=== PATIENT | female | born 1970 | race Caucasian/White ===

== ENCOUNTER 2017-07-10 05:55 | Day surgery (SDC) | payer BC ==
[~2017-07-10 05:55] MED LIST: Lidocaine 1%/Sod Bicarbonate in NS 8.4% 1 ML Syringe IDERM PRN; Sodium Chloride 0.9% 10 ML Syringe FLUSH PRN
[2017-07-10] MEDS ORDERED: ceFAZolin 1 GM Vial ONE ×2 (06:21→06:30)
[2017-07-10] MEDS ORDERED: Bupivacaine 0.25% 30 ML SDV ONE (06:22)
[2017-07-10] MEDS ORDERED: Iodine/Sodium Iodide 2% Tincture 30 ML Bottle ONE (06:22)
[2017-07-10] MEDS ORDERED: Lidocaine 1% 0 ML ONE (06:27)
[2017-07-10] MEDS ORDERED: Propofol 200 MG/20 ML SDV ONE (06:27)
[2017-07-10] MEDS ORDERED: fentaNYL 100 MCG/2 ML SDV ONE (06:27)
[2017-07-10] MEDS ORDERED: Midazolam 1 MG/ML 2 ML SDV ONE (06:28)
[2017-07-10] MEDS: Lactated Ringers 1,000 ML IV SCH ×3 (06:30→11:17)
--- NOTE | 2017-07-10 06:44 | PCM.PREANE ---
Preanesthetic Assessment - Anesthesia/Transfusion/Family Hx Anesthesia History: Prior Anesthesia Without Reaction Family History of Anesthesia Reaction: No Transfusion History: No Prior Transfusion(s) - Review of Systems General: No Symptoms Pulmonary: No Symptoms Cardiovascular: No Symptoms Gastrointestinal: No Symptoms Neurological: No Symptoms Other: Reports: None, Sinus Problem (stuffiness all the time), Anxiety - Physical Assessment NPO Status Date: 07/09/17 NPO Status Time: 21:30 Pulse: 80 O2 Sat by Pulse Oximetry: 96 Respiratory Rate: 16 Blood Pressure: 133/93 Temperature: 98 F Height: 5 ft 4 in Weight: 92 kg ASA Class: 2 Mental Status: Alert & Oriented x3 Airway Class: Mallampati = 1 Dentition: Reports: Normal Dentition Thyro-Mental Finger Breadths: 3 Mouth Opening Finger Breadths: 3 ROM/Head Extension: Full Lungs: Clear to Auscultation, Normal Respiratory Effort Cardiovascular: Regular Rate, Regular Rhythm - Lab Values: Laboratory Last Values MRSA (PCR) Negative 06/27/17 11:25 - Allergies Allergies/Adverse Reactions: Allergies Allergy/AdvReac Type Severity Reaction Status Date / Time No Known Allergies Allergy Verified 06/11/15 20:51 - Blood Blood Available: No - Acknowledgements Anesthesia Type Planned: Spinal Pt an Appropriate Candidate for the Planned Anesthesia: Yes Alternatives and Risks of Anesthesia Discussed w Pt/Guardian: Yes Pt/Guardian Understands and Agrees with Anesthesia Plan: Yes PreAnesthesia Questionnaire - Past Health History Medical/Surgical History: Denies Medical/Surgical History HEENT History: Reports: Impaired Vision, Other (See Below) Other HEENT History: meige syndrome, bleeding gums, weras glasses Cardiovascular History: Reports: High Cholesterol, Hypertension Other Cardiovascular History: ITP Respiratory History: Reports: None Gastrointestinal History: Reports: None Genitourinary History: Reports: None [employer] History: Reports: Other (See Below) Other OB/BYN History: breast nodule, dense breast tissue, menorrhagia Other Musculoskeletal History: Carpal tunnel syndrome Neurological History: Reports: Headaches, Chronic Psychiatric History: Reports: Anxiety, Other (See Below) Other Psychiatric History: fatigue Endocrine/Metabolic History: Reports: Other (See Below) Other Endocrine/Metabolic History: abnormal TSH, hair loss Hematologic History: Reports: Other (See Below) Other Hematologic History: idiopathic thrombocytopenia Immunologic History: Reports: None Oncologic (Cancer) History: Reports: None Dermatologic History: Reports: None - Past Surgical History Head Surgeries/Procedures: Reports: None HEENT Surgical History: Reports: Oral Surgery Cardiovascular Surgical History: Reports: None Respiratory Surgical History: Reports: None GI Surgical History: Reports: None Female Surgical History: Reports: None Male Surgical History: Reports: None Endocrine Surgical History: Reports: None Neurological Surgical History: Reports: None Musculoskeletal Surgical History: Reports: Carpal Tunnel Oncologic Surgical History: Reports: None Dermatological Surgical History: Reports: None - SUBSTANCE USE Smoking Status *Q: Never Smoker Tobacco Use Within Last Twelve Months: No Second Hand Smoke Exposure: No Days Per Week of Alcohol Use: 1 (once a month) Number of Drinks Per Day: 1 Total Drinks Per Week: 1 Recreational Drug Use History: No - HOME MEDS Home Medications: Home Meds Lisinopril [Zestril] 7.5 mg PO DAILY 06/11/15 [History] - CURRENT (IN HOUSE) MEDS Current Meds: Current Medications Lactated Ringer's (Ringers, Lactated) 1,000 mls @ 125 mls/hr IV ASDIRECTED ROHIT Stop: 07/10/17 23:00 Lidocaine/Sodium Bicarbonate (Buffered Lidocaine 1% In Ns 8.4%) 0.25 ml IDERM ONETIME PRN PRN Reason: Prior to IV Start Stop: 07/10/17 18:00 Sodium Chloride (Saline Flush) 10 ml FLUSH ASDIRECTED PRN PRN Reason: Keep Vein Open Stop: 07/10/17 18:00 Discontinued Medications Bupivacaine HCl (Marcaine 0.25%) Confirm Administered Dose 30 ml .ROUTE .STK- MED ONE Stop: 07/10/17 06:23 Cefazolin Sodium (Ancef) Confirm Administered Dose 2 gm .ROUTE .STK-MED ONE Stop: 07/10/17 06:31 Cefazolin Sodium (Ancef) Confirm Administered Dose 2 gm .ROUTE .STK-MED ONE Stop: 07/10/17 06:22 Fentanyl (Sublimaze) Confirm Administered Dose 100 mcg .ROUTE .STK-MED ONE Stop: 07/10/17 06:28 Lidocaine HCl (Xylocaine-Mpf 1%) Confirm Administered Dose 4 mls @ as directed .ROUTE .STK-MED ONE Stop: 07/10/17 06:28 Iodine (Iodine 2% Mild Tincture) Confirm Administered Dose 30 ml .ROUTE .STK- MED ONE Stop: 07/10/17 06:23 Midazolam HCl (Versed 1 Mg/Ml) Confirm Administered Dose 2 mg .ROUTE .STK-MED ONE Stop: 07/10/17 06:29 Propofol (Diprivan 20 Ml) Confirm Administered Dose 600 mg .ROUTE .STK-MED ONE Stop: 07/10/17 06:28 Tranexamic Acid (Cyklokapron) Confirm Administered Dose 1,000 mg .ROUTE .STK- MED ONE Stop: 07/10/17 06:22 Vancomycin HCl (Vancomycin) Confirm Administered Dose 1 gm .ROUTE .STK-MED ONE Stop: 07/10/17 06:22
[2017-07-10] MEDS ORDERED: EPINEPHrine 1 MG/ML SDV ONE (06:50)
[2017-07-10] MEDS ORDERED: Ropivacaine 0.5% 5 MG/ML 30 ML SDV ONE (06:50)
[2017-07-10] MEDS ORDERED: Bisacodyl 5 MG Tab PO PRN (06:51)
[2017-07-10] MEDS ORDERED: Ondansetron 4 MG/2 ML SDV IVPUSH PRN ×2 (06:51→07:35)
[2017-07-10] MEDS ORDERED: Sennosides 8.6 MG Tab PO PRN (06:51)
[2017-07-10] MEDS ORDERED: Naloxone 0.4 MG/ML SDV IVPUSH PRN (06:51)
[2017-07-10] MEDS ORDERED: Morphine 4 MG/ML Syringe IVPUSH PRN (06:51)
[2017-07-10] MEDS ORDERED: Magnesium Hydroxide 400 MG/5 ML Susp 30 ML Cup PO PRN (06:51)
[2017-07-10] MEDS ORDERED: diphenhydrAMINE 50 MG/ML SDV IVPUSH PRN (06:51)
[2017-07-10] MEDS ORDERED: Lactated Ringers 1,000 ML ONE ×2 (07:21→08:01)
[2017-07-10] MEDS ORDERED: Ondansetron 4 MG/2 ML SDV ONE (07:26)
[2017-07-10] MEDS ORDERED: Morphine 8 MG, EPINEPHrine 0.3 MG, Cefuroxime 750 MG, Ketorolac 30 MG, Sodium Chloride ... ONE ×5 (07:30)
[2017-07-10] MEDS ORDERED: fentaNYL 100 MCG/2 ML SDV IVPUSH PRN (07:35)
[2017-07-10] MEDS ORDERED: Meperidine PF 50 MG/ML Syringe IVPUSH PRN (07:35)
[2017-07-10] MEDS ORDERED: HYDROmorphone 0.5 MG/0.5 ML Syringe IVPUSH PRN (07:35)
[2017-07-10] MEDS ORDERED: Ketorolac 30 MG/ML SDV ONE (07:44)
[2017-07-10] MEDS: Vancomycin 1 GM SDV ONE ×2 (08:26→10:58)
[2017-07-10] MEDS ORDERED: Diazepam 5 MG Tab PO PRN (08:39)
[2017-07-10] MEDS ORDERED: Albuterol 6.7 GM Inhaler INH PRN (08:39)
[2017-07-10] MEDS ORDERED: Citalopram 20 MG Tab PO SCH (09:00)
--- NOTE | 2017-07-10 09:11 | PCM.POSTAN ---
POST ANESTHESIA ASSESSMENT - MENTAL STATUS Mental Status: Alert, Oriented - VITAL SIGNS Pulse Rate: 93 SaO2: 100 Resp Rate: 14 Blood Pressure: 115/68 Temperature: 97.8 F - RESPIRATORY Respiratory Status: Respiratory Rate WNL, Airway Patent, O2 Saturation Stable, Supplemental Oxygen - CARDIOVASCULAR CV Status: Pulse Rate WNL, Blood Pressure Stable - GASTROINTESTINAL GI Status: No Symptoms - PAIN Pain Score: 0 - POST OP HYDRATION Hydration Status: Adequate & Stable
[2017-07-10] MEDS ORDERED: LORazepam 2 MG/ML SDV IVPUSH PRN (09:30)
--- NOTE | 2017-07-10 10:12 | CR ---
Left knee: AP and lateral views of the left knee were obtained. Comparison: No prior knee exam. Prosthetic cap is noted within the patellofemoral joint involving the distal femur. Additional prosthesis is seen within the patellar articular surface. Small amount of air is seen within the soft tissues compatible with recent surgery. Minimal osteophytes are noted off the lateral joint. No acute bony abnormality is seen. Impression: 1. Prosthesis within the patellofemoral joint. 2. Other incidental findings. Diagnostic code #2
--- NOTE | 2017-07-10 11:02 | PCM.SN ---
- Free Text/Narrative Note: Left selective femoral nerve block at the adductor canal for post-procedure pain control under US guidance requested by Dr. Ayers. Time Out: 925 Start: 935 End: 944 Chart reviewed. Consent signed. Questions answered. Appropriate monitors applied. Time out performed. Left mid-shaft femur identified with ultrasound, scanning medially of femur, the femoral artery in the adductor canal visualized , and the femoral nerve located laterally to the artery. The skin was prepped lateral to the ultrasound probe with chlorahexadine. The 21ga 4 insulated block needle was inserted under direct ultrasound guidance into the adductor canal. 25mL of 0.5% ropivacaine with 1:200,000 epinephrine was injected circumferentially around the nerve with intermittent negative aspiration noted. Patient tolerated the procedure well. See pictures on progress note and vital signs on nurses notes. Block completed in PACU. Zach Pradhan CRNA
[2017-07-10] MEDS: Acetaminophen/oxyCODONE 325-5 MG Tab PO PRN ×3 (13:39→20:51)
[2017-07-10] MEDS: ceFAZolin 2 GM in Premix Bag 1 BAG IV SCH ×2 (14:48→23:04)
[2017-07-10] MEDS: Ketorolac 15 MG/ML SDV IVPUSH PRN ×2 (14:49→20:55)
[2017-07-10] MEDS: Lisinopril 5 MG Tab PO SCH (17:17)
[2017-07-10] MEDS: Docusate Sodium 100 MG Cap PO SCH (20:19)
[2017-07-10] MEDS: Famotidine 20 MG Tab PO SCH (20:50)
[2017-07-10] MEDS: Cyclobenzaprine 10 MG Tab PO PRN (20:51)
[2017-07-10] MEDS ORDERED: Cholecalciferol (Vitamin D3) 1,000 Unit Tab PO SCH (21:00)
[2017-07-11] MEDS: Ketorolac 15 MG/ML SDV IVPUSH PRN (06:08)
[2017-07-11] MEDS: ceFAZolin 2 GM in Premix Bag 1 BAG IV SCH (06:11)
[2017-07-11] MEDS: Acetaminophen/oxyCODONE 325-5 MG Tab PO PRN ×2 (06:25→11:01)
[2017-07-11] MEDS: Cyclobenzaprine 10 MG Tab PO PRN ×2 (06:25→12:42)
--- NOTE | 2017-07-11 08:13 | PCM.SURGPN ---
- General Info Date of Service: 07/11/17 POD#: 1 Functional Status: Reports: Pain Controlled, Tolerating Diet, Ambulating, Urinating, Incentive Spirometry - Review of Systems Musculoskeletal: Reports: Other (The pt has met inpt therapy goals.) - Patient Data Vitals - Most Recent: Last Vital Signs Temp 98.1 F 07/11/17 04:00 Pulse 89 07/11/17 06:38 Resp 16 07/11/17 04:00 BP 112/68 07/11/17 06:38 Pulse Ox 94 L 07/11/17 06:38 Weight - Most Recent: 204 lb I&O - Last 24 Hours: Intake & Output 07/10/17 07/11/17 07/11/17 22:59 06:59 14:59 Intake Total 120 Output Total 3600 Balance -3480 Lab Results Last 24 Hrs: Laboratory Results - last 24 hr 07/11/17 Range/Units 07:10 WBC 10.18 H (3.98-10.04) K/mm3 RBC 3.74 L (3.98-5.22) M/mm3 Hgb 11.0 L (11.2-15.7) gm/L Hct 34.2 (34.1-44.9) % MCV 91.4 (79.4-94.8) fl MCH 29.4 (25.6-32.2) pg MCHC 32.2 (32.2-35.5) g/dl RDW Std Deviation 45.1 (36.4-46.3) fL Plt Count 151 L (182-369) K/mm3 MPV 11.4 (9.4-12.3) fl Med Orders - Current: Current Medications Albuterol (Proventil Hfa) 0 gm INH ASDIRECTED PRN PRN Reason: Shortness of Breath Aspirin (Ecotrin) 325 mg PO BID ROHIT Bisacodyl (Dulcolax) 5 mg PO DAILY PRN PRN Reason: Constipation Cholecalciferol (Vitamin D3) 5,000 units PO BEDTIME ROHIT Last Admin: 07/10/17 20:19 Dose: Not Given Citalopram Hydrobromide (Celexa) 20 mg PO DAILY ROHIT Cyclobenzaprine HCl (Flexeril) 10 mg PO TID PRN PRN Reason: Spasms Last Admin: 07/11/17 06:25 Dose: 10 mg Diazepam (Valium.) 2.5 mg PO DAILY PRN PRN Reason: Anxiety Diphenhydramine HCl (Benadryl) 25 mg IVPUSH Q4H PRN PRN Reason: Nausea Docusate Sodium (Colace) 100 mg PO BID [facility] Last Admin: 07/10/17 20:19 Dose: Not Given Famotidine (Pepcid) 20 mg PO BID [facility] Last Admin: 07/10/17 20:50 Dose: 20 mg Flunisolide (Nasalide Nasal Pearson) 0 ml NASBOTH BID [facility] Last Admin: 07/10/17 20:18 Dose: Not Given Lisinopril (Prinivil) 7.5 mg PO DAILY [facility] Last Admin: 07/10/17 17:17 Dose: Not Given Lorazepam (Ativan) 0.5 mg IVPUSH ONETIME PRN PRN Reason: Anxiety Last Admin: 07/10/17 09:35 Dose: 0.5 mg Magnesium Hydroxide (Milk Of Magnesia) 30 ml PO BID PRN PRN Reason: Constipation Morphine Sulfate (Morphine) 2 mg IVPUSH Q2H PRN PRN Reason: Breakthrough Pain Naloxone HCl (Narcan) 0.1 mg IVPUSH Q5M PRN PRN Reason: Oversedation Ondansetron HCl (Zofran) 4 mg IVPUSH Q6H PRN PRN Reason: Nausea/Vomiting Oxycodone/Acetaminophen (Percocet 325-5 Mg) 1 - 2 tab PO Q4H PRN PRN Reason: Pain Last Admin: 07/11/17 06:25 Dose: 2 tab Levonorgestrel-Ethin Estradiol [Myzilra- 28 Tablet] 0 each PO DAILY [facility] Senna (Senna) 8.6 mg PO BID PRN PRN Reason: Constipation Discontinued Medications Bupivacaine HCl (Marcaine 0.25%) Confirm Administered Dose 30 ml .ROUTE .STK- MED ONE Stop: 07/10/17 06:23 Last Admin: 07/10/17 08:21 Dose: 30 ml Cefazolin Sodium (Ancef) Confirm Administered Dose 2 gm .ROUTE .STK-MED ONE Stop: 07/10/17 06:31 Last Admin: 07/10/17 08:16 Dose: 2 gm Cefazolin Sodium (Ancef) Confirm Administered Dose 2 gm .ROUTE .STK-MED ONE Stop: 07/10/17 06:22 Citalopram Hydrobromide (Celexa) 20 mg PO DAILY [facility] Morphine Sulfate 8 mg/Epinephrine HCl 0.3 mg/Cefuroxime Sodium 750 mg/Ketorolac Tromethamine 30 mg/Sodium Chloride 27.9 ml 0 mg .XX ONETIME ONE Stop: 07/10/17 07:31 Last Admin: 07/10/17 08:25 Dose: 788.3 mg Epinephrine HCl (Adrenalin) Confirm Administered Dose 1 mg .ROUTE .STK-MED ONE Stop: 07/10/17 06:51 Fentanyl (Sublimaze) Confirm Administered Dose 100 mcg .ROUTE .STK-MED ONE Stop: 07/10/17 06:28 Fentanyl (Sublimaze) 50 mcg IVPUSH Q5M PRN PRN Reason: Pain Stop: 07/10/17 09:30 Hydromorphone HCl (Dilaudid) 0.5 mg IVPUSH Q15M PRN PRN Reason: severe pain Stop: 07/10/17 09:30 Lactated Ringer's (Ringers, Lactated) 1,000 mls @ 125 mls/hr IV ASDIRECTED [facility] Stop: 07/10/17 23:00 Last Admin: 07/10/17 11:17 Dose: 125 mls/hr Lidocaine HCl (Xylocaine-Mpf 1%) Confirm Administered Dose 2 mls @ as directed .ROUTE .STK-MED ONE Stop: 07/10/17 06:28 Cefazolin Sodium/Dextrose 2 gm (/ Premix) 50 mls @ 100 mls/hr IV Q8H [facility] Stop: 07/11/17 07:29 Last Admin: 07/11/17 06:11 Dose: 100 mls/hr Lactated Ringer's (Ringers, Lactated) Confirm Administered Dose 1,000 mls @ as directed .ROUTE .STK-MED ONE Stop: 07/10/17 07:22 Lactated Ringer's (Ringers, Lactated) Confirm Administered Dose 1,000 mls @ as directed .ROUTE .STK-MED ONE Stop: 07/10/17 08:02 Iodine (Iodine 2% Mild Tincture) Confirm Administered Dose 30 ml .ROUTE .STK- MED ONE Stop: 07/10/17 06:23 Ketorolac Tromethamine (Toradol) 15 mg IVPUSH Q6H PRN PRN Reason: Pain Last Admin: 07/11/17 06:08 Dose: 15 mg Ketorolac Tromethamine (Toradol) Confirm Administered Dose 30 mg .ROUTE .STK- MED ONE Stop: 07/10/17 07:45 Lidocaine/Sodium Bicarbonate (Buffered Lidocaine 1% In Ns 8.4%) 0.25 ml IDERM ONETIME PRN PRN Reason: Prior to IV Start Stop: 07/10/17 18:00 Last Admin: 07/10/17 06:29 Dose: 0.25 ml Meperidine HCl (Demerol) 12.5 mg IVPUSH ONETIME PRN PRN Reason: shivering Stop: 07/10/17 09:30 Last Admin: 07/10/17 09:25 Dose: 12.5 mg Midazolam HCl (Versed 1 Mg/Ml) Confirm Administered Dose 2 mg .ROUTE .STK-MED ONE Stop: 07/10/17 06:29 Ondansetron HCl (Zofran) Confirm Administered Dose 4 mg .ROUTE .STK-MED ONE Stop: 07/10/17 07:27 Ondansetron HCl (Zofran) 4 mg IVPUSH ONETIME PRN PRN Reason: Nausea/Vomiting Stop: 07/10/17 09:30 Propofol (Diprivan 20 Ml) Confirm Administered Dose 600 mg .ROUTE .STK-MED ONE Stop: 07/10/17 06:28 Ropivacaine (Naropin 0.5%) Confirm Administered Dose 30 ml .ROUTE .STK-MED ONE Stop: 07/10/17 06:51 Sodium Chloride (Saline Flush) 10 ml FLUSH ASDIRECTED PRN PRN Reason: Keep Vein Open Stop: 07/10/17 18:00 Tranexamic Acid (Cyklokapron) Confirm Administered Dose 1,000 mg .ROUTE .STK- MED ONE Stop: 07/10/17 06:22 Last Admin: 07/10/17 08:30 Dose: 1,000 mg Vancomycin HCl (Vancomycin) Confirm Administered Dose 1 gm .ROUTE .STK-MED ONE Stop: 07/10/17 06:22 Last Admin: 07/10/17 08:26 Dose: 1 gm - Exam Wound/Incisions: Dressing Dry and Intact General: Alert, Cooperative, No Acute Distress Lungs: Normal Respiratory Effort Extremities: Other (Able to sense light touch at LLE. Idalmis's negative for LLE. ) - Problem List Review Problem List Initiated/Reviewed/Updated: Yes - My Orders Last 24 Hours: Active Orders 24 hr Category Date Time Status Mann Catheter Insertion [Insert Urinary Catheter] [OM. Care 07/10/17 07:18 Ordered PC] Stat Ready for Discharge [RC] PER UNIT ROUTINE Care 07/11/17 08:09 Ordered Vital Signs [RC] Q4HR Care 07/10/17 07:35 Active Regular Diet [DIET] Diet 07/10/17 Lunch Active COMPREHENSIVE METABOLIC PN,CMP [CHEM] AM Lab 07/11/17 07:10 Received Albuterol [Proventil HFA] Med 07/10/17 08:39 Active 0 gm INH ASDIRECTED PRN Aspirin [Ecotrin] Med 07/11/17 09:00 Active 325 mg PO BID Cholecalciferol (Vitamin D3) [Vitamin D3] Med 07/10/17 21:00 Active 5,000 units PO BEDTIME Citalopram [Celexa] Med 07/11/17 09:00 Active 20 mg PO DAILY Diazepam [Valium] Med 07/10/17 08:39 Active 2.5 mg PO DAILY PRN Docusate Sodium [Colace] Med 07/10/17 21:00 Active 100 mg PO BID Famotidine [Pepcid] Med 07/10/17 21:00 Active 20 mg PO BID Flunisolide [Nasalide Nasal Pearson] Med 07/10/17 21:00 Active 0 ml NASBOTH BID LORazepam [Ativan] Med 07/10/17 09:30 Active 0.5 mg IVPUSH ONETIME PRN Lisinopril [Prinivil] Med 07/10/17 09:00 Active 7.5 mg PO DAILY Patient's Own Medication [Ptom] Med 07/11/17 09:00 Active 0 each PO DAILY Medication Orders Albuterol (Proventil Hfa) 0 gm INH ASDIRECTED PRN PRN Reason: Shortness of Breath Aspirin (Ecotrin) 325 mg PO BID ROHIT Bisacodyl (Dulcolax) 5 mg PO DAILY PRN PRN Reason: Constipation Cholecalciferol (Vitamin D3) 5,000 units PO BEDTIME ROHIT Last Admin: 07/10/17 20:19 Dose: Citalopram Hydrobromide (Celexa) 20 mg PO DAILY [facility] Cyclobenzaprine HCl (Flexeril) 10 mg PO TID PRN PRN Reason: Spasms Last Admin: 07/11/17 06:25 Dose: 10 mg Admin: 07/10/17 20:51 Dose: 10 mg Diazepam (Valium.) 2.5 mg PO DAILY PRN PRN Reason: Anxiety Diphenhydramine HCl (Benadryl) 25 mg IVPUSH Q4H PRN PRN Reason: Nausea Docusate Sodium (Colace) 100 mg PO BID [facility] Last Admin: 07/10/17 20:19 Dose: Not Given Famotidine (Pepcid) 20 mg PO BID [facility] Last Admin: 07/10/17 20:50 Dose: 20 mg Flunisolide (Nasalide Nasal Pearson) 0 ml NASBOTH BID [facility] Last Admin: 07/10/17 20:18 Dose: Not Given Lisinopril (Prinivil) 7.5 mg PO DAILY [facility] Last Admin: 07/10/17 17:17 Dose: Not Given Lorazepam (Ativan) 0.5 mg IVPUSH ONETIME PRN PRN Reason: Anxiety Last Admin: 07/10/17 09:35 Dose: 0.5 mg Magnesium Hydroxide (Milk Of Magnesia) 30 ml PO BID PRN PRN Reason: Constipation Morphine Sulfate (Morphine) 2 mg IVPUSH Q2H PRN PRN Reason: Breakthrough Pain Naloxone HCl (Narcan) 0.1 mg IVPUSH Q5M PRN PRN Reason: Oversedation Ondansetron HCl (Zofran) 4 mg IVPUSH Q6H PRN PRN Reason: Nausea/Vomiting Oxycodone/Acetaminophen (Percocet 325-5 Mg) 1 - 2 tab PO Q4H PRN PRN Reason: Pain Last Admin: 07/11/17 06:25 Dose: 2 tab Admin: 07/10/17 20:51 Dose: 2 tab Admin: 07/10/17 18:27 Dose: 2 tab Admin: 07/10/17 13:39 Dose: 2 tab Levonorgestrel-Ethin Estradiol [Myzilra- 28 Tablet] 0 each PO DAILY [facility] Senna (Senna) 8.6 mg PO BID PRN PRN Reason: Constipation - Assessment Assessment (Free Text/Narrative):: POD#1 - left patellofemoral arthroplasty - Plan Plan (Free Text/Narrative):: 1. Hgb 11.0. 2. 325mg ASA, TEDs, frequent mobility for VTE prophylaxis. 3. Outpatient P.T. 4. Discharge to home today. The pt's case was discussed with Dr. Ayers.
[2017-07-11] MEDS: Famotidine 20 MG Tab PO SCH (08:27)
[2017-07-11] MEDS: Lisinopril 5 MG Tab PO SCH (08:28)
[2017-07-11] MEDS: Docusate Sodium 100 MG Cap PO SCH (08:33)
[2017-07-11] MEDS ORDERED: Citalopram 20 MG Tab PO SCH (09:00)
[2017-07-11] MEDS ORDERED: LEVONORGESTREL ETHIN ESTRADIOL PO SCH (09:00)
[2017-07-11] MEDS ORDERED: Aspirin 325 MG Tab.EC PO SCH (09:00)
--- NOTE | 2017-07-11 09:12 | PCM48HPAN ---
Post Anesthesia Note - EVALUATION WITHIN 48HRS OF ANESTHETIC Vital Signs in Normal Range: Yes Patient Participated in Evaluation: Yes Respiratory Function Stable: Yes Airway Patent: Yes Cardiovascular Function Stable: Yes Hydration Status Stable: Yes Pain Control Satisfactory: Yes (slept well last night. minimal pain. ) Nausea and Vomiting Control Satisfactory: Yes (some nausea yesterday afternoon when getting up but it quickly passed) Mental Status Recovered: Yes Pulse Rate: 89 Resp Rate: 16 Temperature: 98.8 F Blood Pressure: 112/68
--- NOTE | 2017-07-11 10:28 | PCM.CONS ---
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 Patient is doing relatively well. Currently, her pain is controlled although she complains of left anterior lower extremity numbness. She denies any other acute issues. Medicine was consulted for postoperative care. Left Knee Pain Score (Numeric/FACES): 5 - Related Data Allergies/Adverse Reactions: Allergies Allergy/AdvReac Type Severity Reaction Status Date / Time No Known Allergies Allergy Verified 06/11/15 20:51 Home Medications: Home Meds Lisinopril [Zestril] 7.5 mg PO DAILY 06/11/15 [History] Albuterol [Proair HFA] 1 inh INH ASDIRECTED PRN 07/10/17 [History] Cholecalciferol (Vitamin D3) [Vitamin D] 1 tab PO DAILY 07/10/17 [History] Diazepam [Valium] 2.5 mg PO DAILY PRN 07/10/17 [History] Escitalopram [Lexapro] 10 mg PO DAILY 07/10/17 [History] Fluticasone Propionate [Flonase] 1 spray NASBOTH ASDIRECTED 07/10/17 [History] Levonorgestrel-Ethin Estradiol [Myzilra-28 Tablet] 1 tab PO DAILY 07/10/17 [ History] Acetaminophen/oxyCODONE [Percocet 325-5 MG] 1 - 2 tab PO Q6H PRN #60 tablet [Rx] Aspirin [Ecotrin] 325 mg PO BID #84 tab.ec 07/11/17 [Rx] Bisacodyl [Dulcolax] 5 mg PO DAILY PRN tablet 07/11/17 [Rx] Cyclobenzaprine [Flexeril] 10 mg PO TID PRN #40 tablet 07/11/17 [Rx] Docusate Sodium [Colace] 100 mg PO BID #0 cap 07/11/17 [Rx] Famotidine [Pepcid] 20 mg PO BID tablet 07/11/17 [Rx] Magnesium Hydroxide [Milk of Magnesia] 30 ml PO BID PRN cup 07/11/17 [Rx] Sennosides [Senna] 8.6 mg PO BID PRN tablet 07/11/17 [Rx] Past Medical History - Past Health History Medical/Surgical History: Denies Medical/Surgical History HEENT History: Reports: Impaired Vision, Other (See Below) Other HEENT History: meige syndrome, bleeding gums, weras glasses Cardiovascular History: Reports: High Cholesterol, Hypertension Other Cardiovascular History: ITP Respiratory History: Reports: None Gastrointestinal History: Reports: None Genitourinary History: Reports: None 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 (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) Other OB/BYN History: breast nodule, dense breast tissue, menorrhagia Other Musculoskeletal History: Carpal tunnel syndrome Neurological History: Reports: Headaches, Chronic Psychiatric History: Reports: Anxiety, Other (See Below) Other Psychiatric History: fatigue Endocrine/Metabolic History: Reports: Other (See Below) Other Endocrine/Metabolic History: abnormal TSH, hair loss Hematologic History: Reports: Other (See Below) Other Hematologic History: idiopathic thrombocytopenia Immunologic History: Reports: None Oncologic (Cancer) History: Reports: None Dermatologic History: Reports: None - Past Surgical History Head Surgeries/Procedures: Reports: None HEENT Surgical History: Reports: Oral Surgery Cardiovascular Surgical History: Reports: None Respiratory Surgical History: Reports: None GI Surgical History: Reports: None Female Surgical History: Reports: None Male Surgical History: Reports: None Endocrine Surgical History: Reports: None Neurological Surgical History: Reports: None Musculoskeletal Surgical History: Reports: Carpal Tunnel Oncologic Surgical History: Reports: None Dermatological Surgical History: Reports: None Social & Family History - Tobacco Use Smoking Status *Q: Never Smoker Second Hand Smoke Exposure: No - Caffeine Use Caffeine Use: Reports: Coffee - Alcohol Use Days Per Week of Alcohol Use: 1 (once a month) Number of Drinks Per Day: 1 Total Drinks Per Week: 1 - Recreational Drug Use Recreational Drug Use: No H&P Review of Systems - Review of Systems: Review Of Systems: See Below General: Denies: Fever, Chills, Malaise, Weakness, Fatigue HEENT: Reports: No Symptoms Pulmonary: Reports: Shortness of Breath Cardiovascular: Denies: Chest Pain Gastrointestinal: Denies: Abdominal Pain, Decreased Appetite, Nausea, Vomiting Genitourinary: Reports: No Symptoms Musculoskeletal: Reports: No Symptoms Skin: Denies: Cyanosis, Jaundice, Mottled, Pallor, Diaphoresis Psychiatric: Denies: Confusion, Depression, Anxiety, Agitation, Hallucinations, Suicidal Ideation Neurological: Reports: Numbness (on affected knee), Difficulty Walking, Gait Disturbance. Denies: Confusion, Dizziness, Paresthesia, Tremors, Trouble Speaking, Weakness, Change in Speech Hematologic/Lymphatic: Reports: No Symptoms Immunologic: Reports: No Symptoms Exam - Exam Exam: See Below - Vital Signs Vital Signs: Last Vital Signs Temp 37.1 C 07/11/17 09:12 Pulse 89 07/11/17 09:12 Resp 16 07/11/17 09:12 BP 112/68 07/11/17 09:12 Pulse Ox 93 L 07/11/17 08:00 Weight: 92.533 kg - Exam General: Alert, Oriented, Cooperative. No: Mild Distress HEENT: Conjunctiva Clear, EACs Clear, EOMI, Hearing Intact, Mucosa Moist & Monona , Nares Patent, Normal Nasal Septum, Posterior Pharynx Clear, Pupils Equal, Pupils Reactive Neck: Supple, Trachea Midline Lungs: Clear to Auscultation, Normal Respiratory Effort Cardiovascular: Regular Rate, Regular Rhythm GI/Abdominal Exam: Normal Bowel Sounds, Soft, Non-Tender, No Organomegaly, No Distention, No Abnormal Bruit, No Mass (Female) Exam: Deferred Rectal (Female) Exam: Deferred Back Exam: Normal Inspection, Decreased Range of Motion Extremities: Normal Inspection, Normal Range of Motion (right leg), Non-Tender, No Pedal Edema, Normal Capillary Refill, Limited Range of Motion (left leg) Peripheral Pulses: 3+: Posterior Tibial (L), Posterior Tibial (R), Dorsalis Pedis (L), Dorsalis Pedis (R) Skin: Warm, Dry, Intact Neuro Extensive - Mental Status: Oriented x3, Normal Cognition, Memory Intact Neuro Extensive - Motor, Sensory, Reflexes: CN II-XII Intact, Abnormal Gait, Other (numbness on left anterior lower extremity ) Psychiatric: Alert, Normal Affect, Normal Mood - Patient Data Lab Results Last 24 hrs: Laboratory Results - last 24 hr 07/11/17 07/11/17 Range/Units 07:10 07:10 WBC 10.18 H (3.98-10.04) K/mm3 RBC 3.74 L (3.98-5.22) M/mm3 Hgb 11.0 L (11.2-15.7) gm/L Hct 34.2 (34.1-44.9) % MCV 91.4 (79.4-94.8) fl MCH 29.4 (25.6-32.2) pg MCHC 32.2 (32.2-35.5) g/dl RDW Std Deviation 45.1 (36.4-46.3) fL Plt Count 151 L (182-369) K/mm3 MPV 11.4 (9.4-12.3) fl Sodium 136 (136-145) mEq/L Potassium 3.8 (3.5-5.1) mEq/L Chloride 103 (98-107) mEq/L Carbon Dioxide 25 (21-32) mEq/L Anion Gap 11.8 (5-15) BUN 9 (7-18) mg/dL Creatinine 0.8 (0.55-1.02) mg/dL Est Cr Clr Drug Dosing 76.68 mL/min Estimated GFR (MDRD) > 60 (>60) mL/min BUN/Creatinine Ratio 11.3 L (14-18) Glucose 166 H (74-106) mg/dL Calcium 7.9 L (8.5-10.1) mg/dL Total Bilirubin 0.3 (0.2-1.0) mg/dL AST 13 L (15-37) U/L ALT 14 (14-59) U/L Alkaline Phosphatase 49 (46-116) U/L Total Protein 6.2 L (6.4-8.2) g/dl Albumin 2.6 L (3.4-5.0) g/dl Globulin 3.6 gm/dL Albumin/Globulin Ratio 0.7 L (1-2) Result Diagrams: 07/11/17 07:10 07/11/17 07:10 Consult PN Assessment/Plan POD#: 1 Procedures: Procedures ASSAY GLUCOSE BLOOD QUANT (03/13/15) ASSAY OF FREE THYROXINE (04/11/17) ASSAY OF PREALBUMIN (06/19/17) ASSAY OF TROPONIN QUANT (06/11/15) ASSAY THYROID STIM HORMONE (04/11/17) AUTOMATED PLATELET COUNT (03/24/15) CARDIOVASCULAR STRESS TEST (08/25/15) CHEST X-RAY 1 VIEW FRONTAL (06/11/15) COMP SCREEN MAMMOGRAM ADD-ON (01/21/15) COMPLETE CBC AUTOMATED (07/01/15) COMPLETE CBC W/AUTO DIFF WBC (06/19/17) COMPREHEN METABOLIC PANEL (06/19/17) COMPUTER DX MAMMOGRAM ADD-ON (03/10/16) CT ANGIOGRAPHY CHEST (10/04/13) CT HEAD/BRAIN W/O DYE (06/11/15) ELECTROCARDIOGRAM TRACING (06/11/15) EMERGENCY DEPT VISIT (06/11/15) FIBRIN DEGRADATION QUANT (10/04/13) HT MUSCLE IMAGE SPECT MULT (08/25/15) HYDRATE IV INFUSION ADD-ON (06/11/15) LIPID PANEL (03/08/17) MAMMOGRAM ONE BREAST (08/23/13) METABOLIC PANEL TOTAL CA (07/01/15) MICROSOMAL ANTIBODY EACH (04/11/17) PROTHROMBIN TIME (06/19/17) ROUTINE VENIPUNCTURE (06/19/17) THER/PROPH/DIAG INJ IV PUSH (06/11/15) THROMBOPLASTIN TIME PARTIAL (06/19/17) THYROGLOBULIN ANTIBODY (04/11/17) US EXAM BREAST(S) (02/13/14) X-RAY EXAM CHEST 2 VIEWS (06/19/17) Problem List Initiated/Reviewed/Updated: Yes Plan: Assessment: Acute: Post-Operative Care State - Stable - Continue to monitor for hemodynamic instability S/p Left Patellofemoral Arthroplasty - Stable - DVT and Pain Management as per primary team Hx/o Chronic Left Knee Pain - Pain Management as per primary team Post-Operative Left Knee Numbness - Defer to primary team Chronic: HTN HLD SA Chronic Fatigue 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 Armen Doshi Consult Requested: 07/10/17 Reason for Consult: Post-Operative Care Patient History Reviewed: Yes Admission H&P Reviewed: Yes Consult Result/Summary:: Stable Notified Requestor: Yes Time Spent (in minutes): 45
[2017-07-11 14:00] VITALS: BP 107/63
--- NOTE | 2017-07-20 22:16 | PCM.OPNOTE ---
- General Post-Op/Procedure Note Date of Surgery/Procedure: 07/10/17 Operative Procedure(s): left patellofemoral arthroplasty Pre Op Diagnosis: left knee patellofemoral arthrosis Post-Op Diagnosis: Same Anesthesia Technique: Local, MAC, Spinal Primary Surgeon: Placido Ayers Anesthesia Provider: Noah Hill Manpower Development Specialist Manager: Lilli Charles Manpower Development Specialist Manager: Wanda Wyman EBCaitlyn in mLs: 5 Complications: None Condition: Good
--- NOTE | 2017-07-20 23:17 | OR ---
DATE OF OPERATION: 07/10/2017 SURGEON: Placido Ayers MD OPERATION PERFORMED: Left patellofemoral arthroplasty. PREOPERATIVE DIAGNOSIS: Left knee patellofemoral arthrosis. POSTOPERATIVE DIAGNOSIS: Left knee patellofemoral arthrosis. ANESTHESIA: Technique, local MAC with spinal. ANESTHESIA PROVIDER: Noah Hill CRNA. ASSISTANTS: Lilli Charles PA-C and Wanda Wyman LPN. ESTIMATED BLOOD LOSS: 5 mL. COMPLICATIONS: None. CONDITION: Stable. IMPLANTS: 1. Thania size 2 femoral component for patellofemoral arthroplasty. 2. Thania size 32 x 8.5 mm symmetric patella. DESCRIPTION OF PROCEDURE: The patient was identified in the preop holding area. Proper site was marked and identified by the surgeon. The patient was taken back to the operating theater. After adequate anesthesia, the patient's left lower extremity had a nonsterile tourniquet applied and was then sterilely prepped and draped in the usual sterile fashion. OR time-out was performed. The patient received 2 g IV Ancef. At this time, the left lower extremity was exsanguinated. Tourniquet was insufflated to 250 mmHg. Standard medial parapatellar incision was made making sure to not damage the articular cartilage or the intermeniscal ligament. At this time, attention was turned to look at all the joints, and there were no real changes to either the medial or lateral joint line other than a small area of grade 1 chondromalacia noted on the medial femoral condyle that did not even engage during full extension. At this time, the patient did have grade 3-4 cartilage change of the trochlea and the patella with lateral patellar tilt. At this time, it was decided we would do a patellofemoral arthroplasty. Patella was then measured to be a 23 and was resected to a 13 for a 32 x 8.5 mm patella. Drill holes were then drilled and found to be adequate. At this time, attention was turned to the notch. A drill hole was placed intramedullary 1 cm anterior to the insertion of the PCL. At this time, the anterior cutting guide for the patellofemoral arthroplasty was placed and the screw holes were then placed after external rotation was set using Whitesides line and epicondyles as reference. At this time, the stylet was used to measure the resection. The resection was carried out anteriorly in the proper external rotation. It was found to be an adequate resection. At this time, no guide was then placed and then was secured to the bone using 3 screws. The mill was then utilized through the central tracking, then the lateral, and then the medial making sure to keep the feet in contact with the bone on the contralateral side the entire time. At this time, it was found to have adequate milling of the entire area for the prosthesis including the central hole for the PEG. At this time, the trial component was placed for a size 2 and a 32 x 8.5 mm patella. The patient was noted to have a little bit of increased patellar tilt, but otherwise was tracking centrally and a lateral release was then performed. The patient had a central tracking with thus increased patellar tilt. At this time, cement was mixed on the back table. All cut surfaces were irrigated with pulse lavage irrigation with Ancef and then completely dried. Once the cement was ready, the size 2 Thania femoral component for the patellofemoral arthroplasty was impacted into place and excess cement was removed, and the patella was then cemented into place and excess cement was removed. At this time, 3 L pulse lavage irrigation with Ancef were irrigated through the knee. Once the cement had set up, periarticular injection was completed, and then topical tranexamic acid as well as topical vancomycin powder were placed in the knee. #2 barbed suture was used for closure of the medial parapatellar arthrotomy, 2-0 Vicryl was used subcutaneously, and Prineo was used for the skin. The patient tolerated the procedure well and sent to PACU in stable condition. MMODAL /[id number]
== END 2017-07-11 14:20 | disposition home or self-care (01) ==
LOC: JD.SDS 05:55 → JD.OB 05:56 → JD.SDS 07-11 14:20
PROVIDERS: ATTEND Orthopaedic Surgery
DX: M17.12 Unilateral primary osteoarthritis, left knee (principal); I10 Essential (primary) hypertension; F41.9 Anxiety disorder, unspecified; E78.5 Hyperlipidemia, unspecified; J30.89 Other allergic rhinitis; Z72.0 Tobacco use; Z91.018 Allergy to other foods; Z79.899 Other long term (current) drug therapy
CPT/HCPCS: 27442; 36415; 64450; 73560; 80053; 81025; 85027; 87641; 97110; 97116; 97161; 97165; 97535; A9270; C1713; C1776; J0171; J0690; J0697; J1885; J2060; J2175; J2250; J2270; J2405; J2795; J3010; J3370; J3490; J7120; 01392; J2704

== ENCOUNTER 2019-09-27 07:59 | Day surgery (SDC) | payer BC ==
[2019-09-27] MEDS ORDERED: Midazolam 1 MG/ML 2 ML SDV ONE (08:06)
[2019-09-27] MEDS ORDERED: Propofol 200 MG/20 ML SDV ONE (08:06)
[2019-09-27] MEDS ORDERED: fentaNYL 250 MCG/5 ML SDV ONE (08:06)
[2019-09-27] MEDS ORDERED: Lidocaine 1% 4 ML ONE (08:19)
[2019-09-27] MEDS: Lactated Ringers 1,000 ML IV SCH ×2 (08:20→12:29)
--- NOTE | 2019-09-27 08:29 | PCM.PREANE ---
Preanesthetic Assessment - Procedure Proposed Procedure: Vaginal Hysterectomy - Anesthesia/Transfusion/Family Hx Anesthesia History: Prior Anesthesia Without Reaction Transfusion History: No Prior Transfusion(s) - Review of Systems General: No Symptoms Pulmonary: No Symptoms Cardiovascular: No Symptoms Gastrointestinal: No Symptoms Neurological: No Symptoms Other: Reports: None - Physical Assessment NPO Status Date: 09/26/19 NPO Status Time: 23:00 Vital Signs: Last Vital Signs Temp 98.0 F 09/27/19 08:00 Pulse 72 09/27/19 08:00 Resp 16 09/27/19 08:00 BP 128/86 09/27/19 08:00 Pulse Ox 97 09/27/19 08:00 Height: 1.65 m Weight: 83.915 kg ASA Class: 2 Mental Status: Alert & Oriented x3 Airway Class: Mallampati = 2 Dentition: Reports: Normal Dentition Thyro-Mental Finger Breadths: 3 Mouth Opening Finger Breadths: 3 ROM/Head Extension: Full Lungs: Clear to Auscultation, Normal Respiratory Effort Cardiovascular: Regular Rate, Regular Rhythm - Lab Values: Laboratory Last Values SARS Virus RNA (PCR) Negative (NEGATIVE) 09/24/19 13:00 - Allergies Allergies/Adverse Reactions: Allergies Allergy/AdvReac Type Severity Reaction Status Date / Time kiwi Allergy Swelling Verified 09/25/19 16:32 - Acknowledgements Anesthesia Type Planned: General Anesthesia Pt an Appropriate Candidate for the Planned Anesthesia: Yes Alternatives and Risks of Anesthesia Discussed w Pt/Guardian: Yes Pt/Guardian Understands and Agrees with Anesthesia Plan: Yes PreAnesthesia Questionnaire - Past Health History Medical/Surgical History: Denies Medical/Surgical History HEENT History: Reports: Other (See Below) Other HEENT History: Meige syndrome, bleeding gums Cardiovascular History: Reports: High Cholesterol, Hypertension Other Cardiovascular History: ITP Genitourinary History: Reports: UTI, Recurrent, Other (See Below) Other Genitourinary History: breast nodule, dense breast tissue 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 (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) Other OB/BYN History: abnormal uterine bleeding, menorrhagia Musculoskeletal History: Reports: Other (See Below) Other Musculoskeletal History: Carpal tunnel syndrome Neurological History: Reports: Headaches, Chronic Psychiatric History: Reports: Anxiety Other Psychiatric History: fatigue Endocrine/Metabolic History: Reports: Hypothyroidism, Obesity/BMI 30+ Other Endocrine/Metabolic History: abnormal TSH, hair loss Hematologic History: Reports: Other (See Below) Other Hematologic History: thrombocytopenia Dermatologic History: Reports: Other (See Below) Other Dermatologic History: hair loss - Past Surgical History HEENT Surgical History: Reports: Oral Surgery Musculoskeletal Surgical History: Reports: Other (See Below) Other Musculoskeletal Surgeries/Procedures:: partial knee replacement, right carpal tunnel release - SUBSTANCE USE Smoking Status *Q: Never Smoker Recreational Drug Use History: No - HOME MEDS Home Medications: Home Meds Escitalopram [Lexapro] 10 mg PO DAILY 09/25/19 [History] Fish Oil/[place]-3 Fatty Acids [Fish Oil 1,000 MG] 1 gm PO DAILY 09/25/19 [History ] Levothyroxine Sodium [Levoxyl] 50 mcg PO DAILY 09/25/19 [History] Multivit-Min/Folic Acid/Biotin [Hair, Skin and Nails Caplet] 1 tab PO DAILY [History] Vitamin B Complex 1 tab PO DAILY 09/25/19 [History] lisinopriL [Lisinopril] 7.5 mg PO DAILY 09/25/19 [History] - CURRENT (IN HOUSE) MEDS Current Meds: Current Medications Lactated Ringer's (Ringers, Lactated) 1,000 mls @ 125 mls/hr IV ASDIRECTED ROHIT Stop: 09/27/19 23:00 Lidocaine/Sodium Bicarbonate (Buffered Lidocaine 1% In Ns 8.4%) 0.25 ml IDERM ONETIME PRN PRN Reason: Prior to IV Start Stop: 09/27/19 18:00 Sodium Chloride (Saline Flush) 10 ml FLUSH ASDIRECTED PRN PRN Reason: Keep Vein Open Stop: 09/27/19 18:00 Discontinued Medications Fentanyl (Sublimaze) Confirm Administered Dose 250 mcg .ROUTE .STK-MED ONE Stop: 09/27/19 08:07 Lidocaine HCl (Xylocaine-Mpf 1%) Confirm Administered Dose 4 mls @ as directed .ROUTE .STK-MED ONE Stop: 09/27/19 08:20 Midazolam HCl (Versed 1 Mg/Ml) Confirm Administered Dose 4 mg .ROUTE .STK-MED ONE Stop: 09/27/19 08:07 Propofol (Diprivan 20 Ml) Confirm Administered Dose 200 mg .ROUTE .STK-MED ONE Stop: 09/27/19 08:07 Vecuronium [place] (Vecuronium) Confirm Administered Dose 10 mg .ROUTE .[facility] ONE Stop: 09/27/19 08:08
[2019-09-27] MEDS ORDERED: Sodium Chloride 0.9% 50 ML SDV ONE (09:04)
[2019-09-27] MEDS ORDERED: Lidocaine 1% with EPINEPHrine 1:100,000 20 ML MDV ONE (09:04)
[2019-09-27] MEDS ORDERED: Dexamethasone 4 MG/ML 5 ML MDV ONE (09:30)
[2019-09-27] MEDS ORDERED: ceFAZolin 1 GM Vial ONE (09:34)
[2019-09-27] MEDS ORDERED: ePHEDrine Sulfate/0.9% NaCl/Pf 25 MG/5 ML SYRINGE IV ONE (09:36)
[2019-09-27] MEDS ORDERED: Lactated Ringers 1,000 ML ONE (09:49)
[2019-09-27] MEDS ORDERED: fentaNYL 100 MCG/2 ML SDV IVPUSH PRN (10:08)
[2019-09-27] MEDS ORDERED: HYDROmorphone 0.5 MG/0.5 ML Syringe IVPUSH PRN (10:08)
[2019-09-27] MEDS ORDERED: HYDROmorphone 0.5 MG/0.5 ML Syringe ONE (10:21)
[2019-09-27] MEDS ORDERED: Ondansetron 4 MG/2 ML SDV ONE (10:24)
[2019-09-27] MEDS ORDERED: Ketorolac 30 MG/ML SDV ONE (10:26)
--- NOTE | 2019-09-27 11:00 | PCM.POSTAN ---
POST ANESTHESIA ASSESSMENT - MENTAL STATUS Mental Status: Somnolent - VITAL SIGNS Vital Signs: Last Vital Signs Temp 98.9 F 09/27/19 10:46 Pulse 80 09/27/19 10:46 Resp 15 09/27/19 10:46 BP 110/69 09/27/19 10:46 Pulse Ox 100 09/27/19 10:46 - RESPIRATORY Respiratory Status: Respiratory Rate WNL, Airway Patent, O2 Saturation Stable, Supplemental Oxygen - CARDIOVASCULAR CV Status: Pulse Rate WNL, Blood Pressure Stable - GASTROINTESTINAL GI Status: No Symptoms - PAIN Pain Score: 0 - POST OP HYDRATION Hydration Status: Adequate & Stable
--- NOTE | 2019-09-27 11:11 | PCM.OPNOTE ---
- General Post-Op/Procedure Note Date of Surgery/Procedure: 09/27/19 Operative Procedure(s): Transvaginal hysterectomy with bilateral salpingectomy Findings: Grossly normal-appearing cervix with normal-appearing uterus, bilateral fallopian tubes and ovaries. Grossly normal visualized portions of the intestines. Urethra with purulent discharge coming from the urethral meatus and a culture obtained from this area. Pre Op Diagnosis: Abnormal uterine bleeding with menorrhagia and stress urinary incontinence Post-Op Diagnosis: Same Anesthesia Technique: General ET Tube Primary Surgeon: Shoaib Singh Anesthesia Provider: Farrukh Jimenez Plumber Supervisor: Que Burns Plumber Supervisor: Jo Chiang (PA-S) Reason Plumber Supervisor Was Necessary: Patient safety and reduction of morbidity and mortality Role of Plumber Supervisor: Retraction for visualization during the case Pathology: Uterus, cervix and bilateral fallopian tubes Fluid Replacement, Intraop: 1,700 Output, Urine Amount: 0 (Voided prior to procedure) EBL in mLs: 50 Complications: Purulent discharge coming from urethral meatus and decision made to not proceed with mid urethral sling Condition: Good Free Text/Narrative:: Procedure in detail: The patient was seen in the preoperative holding area and risks, benefits, indications, and alternatives of the procedure were reviewed with the patient and she desired to proceed with a trans vaginal hysterectomy, bilateral salpingectomy and mid urethral sling. Ends of her previously signed in the office were reviewed. The patient was given general anesthesia with an endotracheal tube that was placed without difficulty. The patient was placed in dorsal lithotomy position using yellowfin stirrups. She was prepped and draped in normal sterile fashion. A weighted speculum was placed into the vagina. At this time there was noted to be purulent discharge coming from the urethral meatus. A wound culture was obtained from the urethral meatus and sent to the laboratory. A Tavon retractor was then used to visualize the cervix. The anterior lip of the cervix was grasped with the single-tooth tenaculum. A double-tooth tenaculum was used to grasp the entirety of the cervix the single-tooth tenaculum was removed. The cervix was injected circumferentially with 0.25% lidocaine with epinephrine. The cervix was circumferentially incised with a scalpel. The bladder was dissected off the pubovesical cervical fascia anteriorly with De Paz scissors. The posterior cul-de-sac was entered sharply without difficulty using De Paz scissors. An Enseal vessel sealing device was placed over the uterosacral ligaments on the patient's left side. These were cauterized and ligated with the Enseal vessel sealing device. This was repeated on the patient's right side. Hemostasis was assured. The cardinal ligaments were then clamped on both sides with Enseal vessel sealing device, cauterized and ligated with the device. The pubovesical fascia was then further dissected off of the anterior uterus and the anterior cul-de-sac was able to be entered sharply with De Paz scissors. The uterine arteries and broad ligament were then serially clamped with Enseal vessel sealing device, cauterized and ligated with the device on both sides. The cornua were clamped bilaterally with Enseal vessel sealing device, cauterized and ligated, and the uterus delivered. The right fallopian tube was then visualized and grasped using a Kofi clamp and excised using Enseal vessel sealing device. This was repeated on the left side with grasping of the fallopian tube with a Kofi clamp and excised using Enseal vessel sealing device. The posterior vaginal cuff was closed with running locked sutures of 0-Monocryl. The vaginal cuff was closed with running locked stitches in a horizontal fashion with 0-Monocryl. At this time decision was made to not perform the mid urethral sling to avoid chances for infection with a foreign body present. The procedure was completed at this time. All instruments were removed from the vagina. The patient was awoken and taken to the PACU for recovery in stable condition. Sponge, lap, needle, and instrument counts were correct x 2.
--- NOTE | 2019-09-27 12:28 | PCM48HPAN ---
Post Anesthesia Note - EVALUATION WITHIN 48HRS OF ANESTHETIC Vital Signs in Normal Range: Yes Patient Participated in Evaluation: Yes Respiratory Function Stable: Yes Airway Patent: Yes Cardiovascular Function Stable: Yes Hydration Status Stable: Yes Pain Control Satisfactory: Yes (currently 5/10, tolerable per patient) Nausea and Vomiting Control Satisfactory: Yes Mental Status Recovered: Yes Vital Signs: Last Vital Signs Temp 97.9 F 09/27/19 12:10 Pulse 84 09/27/19 12:10 Resp 12 09/27/19 12:10 BP 109/65 09/27/19 12:10 Pulse Ox 94 L 09/27/19 12:10 - COMMENTS/OBSERVATIONS Free Text/Narrative:: Patient is in 2nd stage recovery, comfortable now, still sleepy but easily arousable and fully alert. PO fluid intake tolerated. Plan is to ambulate and void prior to discharge home.
[2019-09-27] MEDS ORDERED: Acetaminophen/oxyCODONE 325-5 MG Tab PO PRN (12:30)
[2019-09-27] MEDS ORDERED: Metoclopramide 10 MG/2 ML SDV IVPUSH ONE (15:01)
[2019-09-27 15:11] VITALS: BP 118/80
[2019-09-27] MEDS ORDERED: Haloperidol Lactate 5 MG/ML SDV IVPUSH ONE (15:45)
[2019-09-27 17:28] VITALS: PULSE 86
== END 2019-09-27 18:40 | disposition home or self-care (01) ==
LOC: JD.SDS 07:59 → JD.MS 15:48 → JD.SDS 18:40
PROVIDERS: ATTEND Obstetrics & Gynecology
DX: N80.0 Endometriosis of uterus (principal); N72 Inflammatory disease of cervix uteri; N39.3 Stress incontinence (female) (male); I10 Essential (primary) hypertension; E78.00 Pure hypercholesterolemia, unspecified; F41.9 Anxiety disorder, unspecified; E78.5 Hyperlipidemia, unspecified; E03.9 Hypothyroidism, unspecified; E66.9 Obesity, unspecified; Z79.890 Hormone replacement therapy; Z79.899 Other long term (current) drug therapy; Z68.30 Body mass index [BMI] 30.0-30.9, adult
CPT/HCPCS: 36415; 51701; 51798; 57288; 58262; 81001; 81025; 86850; 86900; 86901; 87070; 87075; 87077; 87186; 87205; 87635; A9270; J0171; J0690; J1100; J1170; J1885; J2001; J2250; J2405; J2704; J2710; J2765; J3010; J7120; 00944; J3490; U0002

== ENCOUNTER 2020-07-07 07:07 | Day surgery (SDC) | payer BC ==
[~2020-07-07 07:07] MED LIST changes: +Lactated Ringers 1,000 ML IV SCH
[2020-07-07] MEDS ORDERED: Bupivacaine 0.5%/EPINEPHrine 1:200,000 50 ML MDV ONE (07:24)
[2020-07-07] MEDS ORDERED: fentaNYL 100 MCG/2 ML SDV ONE (07:27)
[2020-07-07] MEDS ORDERED: Midazolam 1 MG/ML 2 ML SDV ONE (07:28)
[2020-07-07] MEDS ORDERED: Propofol 200 MG/20 ML SDV ONE (07:28)
[2020-07-07] MEDS ORDERED: Lidocaine 1% 4 ML ONE ×2 (07:28)
[2020-07-07] MEDS ORDERED: Ketamine 500 mg/10 ML MDV ONE (07:35)
--- NOTE | 2020-07-07 07:35 | PCM.PREANE ---
Preanesthetic Assessment - Procedure Proposed Procedure: excisional biposy of left axilla mass - Anesthesia/Transfusion/Family Hx Anesthesia History: Prior Anesthesia Reaction Type of Anesthesia Reaction: Excessive Nausea/Vomiting Family History of Anesthesia Reaction: No Transfusion History: No Prior Transfusion(s) Intubation History: Unknown - Review of Systems General: No Symptoms Pulmonary: No Symptoms Cardiovascular: No Symptoms Gastrointestinal: No Symptoms Neurological: No Symptoms Other: Reports: Easy Bleeding - Physical Assessment NPO Status Date: 07/06/20 NPO Status Time: 10:30 Vital Signs: 134/87 69 94% Height: 1.63 m Weight: 88.2 kg ASA Class: 3 Mental Status: Alert & Oriented x3 Airway Class: Mallampati = 2 Dentition: Reports: [place](s) (permanent ) Thyro-Mental Finger Breadths: 2 Mouth Opening Finger Breadths: 3 ROM/Head Extension: Full Lungs: Clear to Auscultation, Normal Respiratory Effort Cardiovascular: Regular Rate, Regular Rhythm - Allergies Allergies/Adverse Reactions: Allergies Allergy/AdvReac Type Severity Reaction Status Date / Time cristianowi Allergy Swelling Verified 07/06/20 15:35 - Blood Blood Available: No - Anesthesia Plan Pre-Op Medication Ordered: None - Acknowledgements Anesthesia Type Planned: MAC Pt an Appropriate Candidate for the Planned Anesthesia: Yes Alternatives and Risks of Anesthesia Discussed w Pt/Guardian: Yes Pt/Guardian Understands and Agrees with Anesthesia Plan: Yes PreAnesthesia Questionnaire - Past Health History Medical/Surgical History: Denies Medical/Surgical History HEENT History: Reports: Impaired Vision, Other (See Below) Other HEENT History: Meige syndrome, bleeding gums Cardiovascular History: Reports: High Cholesterol, Hypertension Other Cardiovascular History: ITP Respiratory History: Reports: None Gastrointestinal History: Reports: None Genitourinary History: Reports: UTI, Recurrent Other Genitourinary History: breast nodule, dense breast tissue 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 (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 Below) Other OB/BYN History: breast nodule, dense breast tissue, menorrhagia Musculoskeletal History: Reports: Other (See Below) Other Musculoskeletal History: Carpal tunnel syndrome Neurological History: Reports: Headaches, Chronic Psychiatric History: Reports: Anxiety, Other (See Below) Other Psychiatric History: fatigue Endocrine/Metabolic History: Reports: Hypothyroidism, Obesity/BMI 30+ Other Endocrine/Metabolic History: abnormal TSH, hair loss Hematologic History: Reports: Other (See Below) Other Hematologic History: idiopathic thrombocytopenia Immunologic History: Reports: None Oncologic (Cancer) History: Reports: None Dermatologic History: Other Dermatologic History: hair loss, axillary adenopathy - Infectious Disease History Infectious Disease History: Reports: None - Past Surgical History Head Surgeries/Procedures: Reports: None HEENT Surgical History: Reports: Oral Surgery Cardiovascular Surgical History: Reports: None Respiratory Surgical History: Reports: None GI Surgical History: Reports: None Female Surgical History: Reports: Hysterectomy Male Surgical History: Reports: None Endocrine Surgical History: Reports: None Neurological Surgical History: Reports: None Musculoskeletal Surgical History: Reports: Carpal Tunnel, Knee Replacement, Other (See Below) Other Musculoskeletal Surgeries/Procedures:: partial knee replacement, right carpal tunnel release Oncologic Surgical History: Reports: None Dermatological Surgical History: Reports: None - SUBSTANCE USE Tobacco Use Status *Q: Never Tobacco User Recreational Drug Use History: No - HOME MEDS Home Medications: Home Meds Escitalopram [Lexapro] 10 mg PO DAILY 09/25/19 [History] Levothyroxine Sodium [Levoxyl] 50 mcg PO DAILY 09/25/19 [History] lisinopriL [Lisinopril] 7.5 mg PO DAILY 09/25/19 [History] - CURRENT (IN HOUSE) MEDS Current Meds: Current Medications Lactated Ringer's (Ringers, Lactated) 1,000 mls @ 125 mls/hr IV ASDIRECTED ROHIT Stop: 07/07/20 23:00 Lidocaine/Sodium Bicarbonate (Buffered Lidocaine 1% In Ns 8.4%) 0.25 ml IDERM ONETIME PRN PRN Reason: Prior to IV Start Stop: 07/07/20 18:00 Sodium Chloride (Saline Flush) 10 ml FLUSH ASDIRECTED PRN PRN Reason: Keep Vein Open Stop: 07/07/20 18:00
[2020-07-07] MEDS ORDERED: Scopolamine 1.5 MG Transdermal Patch TRDERM SCH (07:47)
[2020-07-07] MEDS ORDERED: Ondansetron 4 MG/2 ML SDV ONE (08:54)
--- NOTE | 2020-07-07 08:59 | PCM.PRNOTE ---
- Free Text/Narrative Note: Date: 07/07/2020 Operation: left axillary excisional biopsy History: patient noticed lesion of left axilla. Ultrasound at the area of concern identified a benign appearing 1.4 cm nodule in the subcutaneous tissue thought to be lymph node. Mammography was negative. The patient desires excision. Surgeon: Johnson Trejo MD Findings: no obvious pathology in the axilla. The patient helped identify the target pre-operatively and site was marked. Benign appearing subcutaneous fat in the area was excised and sent for pathology. There was no palpable abnormality in the dissection field or surrounding soft tissue. Detailed Report: The patient was taken to the operating room and placed in supine position. Timeout was performed and monitored anesthesia care was initiated. The patient's arm was abducted and the axilla was prepped and draped in usual sterile fashion. 10 cc of 0.5% Marcaine with epinephrine was injected at the previously marked site indicating the area of concern. A 2 cm incision was made with the scalpel through skin to subcutaneous tissue. Skin flaps were developed, and the subcutaneous tissue was explored. No obvious pathology was identified. There was nodular subcutaneous fat which was excised and sent for pathologic analysis. However it did not seem that there was lipoma, pathologic lymph node or other concerning finding in the area that the patient had indicated. The dissection field was hemostatic. Wound was closed in layers with interrupted deep dermal Vicryl sutures and running subcuticular Vicryl suture. Dermabond dressing was applied. The patient tolerated the procedure well.
--- NOTE | 2020-07-07 09:00 | PCM48HPAN ---
Post Anesthesia Note - EVALUATION WITHIN 48HRS OF ANESTHETIC Vital Signs in Normal Range: Yes Patient Participated in Evaluation: Yes Respiratory Function Stable: Yes Airway Patent: Yes Cardiovascular Function Stable: Yes Hydration Status Stable: Yes Pain Control Satisfactory: Yes Nausea and Vomiting Control Satisfactory: Yes Mental Status Recovered: Yes (drowsy but recovering slowly ) Vital Signs: Last Vital Signs Temp 36.5 C 07/07/20 08:50 Pulse 63 07/07/20 08:50 Resp 16 07/07/20 08:50 BP 146/92 H 07/07/20 08:50 Pulse Ox 96 07/07/20 08:50
[2020-07-07 10:01] VITALS: BP 124/91; PULSE 61
== END 2020-07-07 10:04 | disposition home or self-care (01) ==
LOC: JD.SDS 07:07
PROVIDERS: ATTEND Surgery
DX: R59.0 Localized enlarged lymph nodes (principal); I10 Essential (primary) hypertension; E78.00 Pure hypercholesterolemia, unspecified; E03.9 Hypothyroidism, unspecified; Z79.899 Other long term (current) drug therapy; Z79.890 Hormone replacement therapy; Z91.018 Allergy to other foods
CPT/HCPCS: 21555; 36415; 85025; A9270; J2250; J2405; J2704; J3010; J3490; J7120; 00400

== ENCOUNTER 2020-08-11 11:42 | Emergency (ER) | payer BC ==
[2020-08-11 12:00] VITALS: BP 132/92; PULSE 73
--- NOTE | 2020-08-11 12:48 | CR ---
Right knee: 4 views of the right knee were obtained. Comparison: No prior right knee exam is available. Severe narrowing is noted at the patellofemoral joint. Small osteophytes are seen. Small detached bony density is noted superiorly. Medial and lateral joint compartments are maintained in height. Minimal osteophytes are seen off the medial and lateral tibia. No acute fracture or other abnormality is appreciated. Impression: 1. Severe joint space narrowing within the patellofemoral joint. 2. Other minimal degenerative change as noted above. Diagnostic code #3
[2020-08-11] MEDS ORDERED: Ketorolac 60 MG/2 ML SDV IM ONE (12:51)
--- NOTE | 2020-08-11 13:19 | EDM.PDOC ---
ED HPI GENERAL MEDICAL PROBLEM - General Chief Complaint: Lower Extremity Injury/Pain Stated Complaint: RT KNEE PAIN Time Seen by Provider: 08/11/20 12:09 Source of Information: Reports: Patient, RN Notes Reviewed History Limitations: Reports: No Limitations - History of Present Illness INITIAL COMMENTS - FREE TEXT/NARRATIVE: Patient is a 50-year-old female presenting to the emergency department complaints of right knee pain. She states that she has been having intermittent pain off and on for the last few weeks, however last evening she was walking on the treadmill and felt a pop. She has been experiencing intense pain since that time. She has been icing and elevating intermittently as well as using Tylenol, ibuprofen, and a [place] with little relief. She is scheduled to see Dr. Ayers, orthopedist, on Monday of this week. Last dose of pain medication was ibuprofen upon waking this morning. Right Knee Pain Score (Numeric/FACES): 10 - Related Data Allergies Allergy/AdvReac Type Severity Reaction Status Date / Time kiwi Allergy Severe Swelling Verified 08/11/20 12:00 Home Meds: Home Meds Escitalopram [Lexapro] 20 mg PO DAILY 09/25/19 [History] Levothyroxine Sodium [Levoxyl] 50 mcg PO DAILY 09/25/19 [History] lisinopriL [Lisinopril] 7.5 mg PO DAILY 09/25/19 [History] Naproxen [Naprosyn] 500 mg PO Q12HR 5 Days #10 tab 08/11/20 [Rx] Past Medical History - Past Health History Medical/Surgical History: Denies Medical/Surgical History HEENT History: Reports: Impaired Vision, Other (See Below) Other HEENT History: Meige syndrome, bleeding gums Cardiovascular History: Reports: High Cholesterol, Hypertension Other Cardiovascular History: ITP Respiratory History: Reports: None Gastrointestinal History: Reports: None Genitourinary History: Reports: UTI, Recurrent Other Genitourinary History: breast nodule, dense breast tissue 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) 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 ADMINISTRATIVE TECHNICIAN History: breast nodule, dense breast tissue, menorrhagia Musculoskeletal History: Reports: Other (See Below) Other Musculoskeletal History: Carpal tunnel syndrome Neurological History: Reports: Headaches, Chronic Psychiatric History: Reports: Anxiety Other Psychiatric History: fatigue Endocrine/Metabolic History: Reports: Hypothyroidism, Obesity/BMI 30+ Other Endocrine/Metabolic History: abnormal TSH, hair loss Hematologic History: Reports: Other (See Below) Other Hematologic History: idiopathic thrombocytopenia Immunologic History: Reports: None Oncologic (Cancer) History: Reports: None Dermatologic History: Other Dermatologic History: hair loss, axillary adenopathy - Infectious Disease History Infectious Disease History: Reports: None - Past Surgical History HEENT Surgical History: Reports: Oral Surgery Female Surgical History: Reports: Hysterectomy Musculoskeletal Surgical History: Reports: Carpal Tunnel, Knee Replacement, Other (See Below) Other Musculoskeletal Surgeries/Procedures:: left knee replacement, right carpal tunnel release Social & Family History - Tobacco Use Tobacco Use Status *Q: Never Tobacco User - Caffeine Use Caffeine Use: Reports: Coffee - Recreational Drug Use Recreational Drug Use: No - Living Situation & Occupation Living situation: Reports: , with Spouse, with Family (3 kids) 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 ED EXAM, GENERAL - Physical Exam Exam: See Below Exam Limited By: No Limitations General Appearance: Alert, WD/WN, No Apparent Distress Respiratory/Chest: No Respiratory Distress, Lungs Clear, Normal Breath Sounds, No Accessory Muscle Use, Chest Non-Tender Cardiovascular: Normal Peripheral Pulses, Regular Rate, Rhythm, No Edema, No Gallop, No JVD, No Murmur, No Rub Extremities: Other (Tenderness to palpation of the posterior aspect of the right knee. No obvious edema, redness, or ecchymosis.) Neurological: Alert, Oriented, CN II-XII Intact, Normal Cognition, Normal Gait, Normal Reflexes, No Motor/Sensory Deficits Psychiatric: Normal Affect, Normal Mood Course - Vital Signs Last Recorded V/S: Last Vital Signs Temp 97 F 08/11/20 11:56 Pulse 73 08/11/20 11:56 Resp 16 08/11/20 11:56 BP 132/92 H 08/11/20 11:56 Pulse Ox 96 08/11/20 11:56 - Orders/Labs/Meds Orders: Active Orders 24 hr Category Date Time Status DME for Discharge [COMM] Routine Oth 08/11/20 12:54 Ordered Meds: Medications Discontinued Medications Generic Name Dose Route Start Last Admin Trade Name Freq PRN Reason Stop Dose Admin Ketorolac Tromethamine 60 mg 08/11/20 12:51 08/11/20 12:58 Ketorolac 60 Mg/2 Ml Sdv IM 08/11/20 12:52 60 mg ONETIME ONE Administration - Re-Assessments/Exams Free Text/Narrative Re-Assessment/Exam: Patient is a 50-year-old female presenting to the emergency department with complaints of a right knee pain. She is had problems with pain off and on for the last few weeks, however she was walking on the treadmill last evening and felt a pop. Since that time she has been experiencing intense pain. On exam, she has tenderness to the posterior aspect of her knee. There is no anterior tenderness, redness, swelling, or ecchymosis. I ordered an x-ray of the right knee as well as Toradol 60 mg IM. 08/11/20 1310 X-ray of the right knee shows severe joint space narrowing. Patient will be placed in a knee immobilizer. Recommend ice and elevation for the next few days. She should keep her appointment as scheduled with Dr. Ayers on Monday. She does have crutches at home. Discharge instructions as documented. Departure - Departure Time of Disposition: 13:17 Disposition: Home, Self-Care 01 Condition: Good Clinical Impression: Knee pain, right Qualifiers: Chronicity: acute Qualified Code(s): M25.561 - Pain in right knee - Discharge Information *PRESCRIPTION DRUG MONITORING PROGRAM REVIEWED*: No *COPY OF PRESCRIPTION DRUG MONITORING REPORT IN PATIENT LIBRADO: No Prescriptions: Naproxen [Naprosyn] 500 mg PO Q12HR 5 Days #10 tab Instructions: Acute Knee Pain, Adult Referrals: Cassi Cohn NP [Primary Care Provider] - Placido Ayers MD [Physician] - Forms: ED Department Discharge, ED Return to Work/School Form Additional Instructions: You were seen in the emergency department today for evaluation of right knee pain. X-rays were completed and do show severe joint space narrowing. As we discussed, the majority of knee injuries are related to soft tissue and ligaments which is not visible on x-ray. While in the ER, you received an injection of Toradol. You have also been placed in a knee immobilizer. Rec ommend intermittent ice and elevation for the next few days. A prescription for Naprosyn for pain has been sent. Take this medication as prescribed starting this evening. Do not take ibuprofen in addition to this, however you may use Tylenol if needed. Recommend nonweightbearing and wear the immobilizer when you are up and moving around. Keep your appointment with Dr. Ayers as scheduled on Monday. Return to ER for any new or worsening symptoms of concern. Sepsis Event Note (ED) - Evaluation Sepsis Screening Result: No Definite Risk - Focused Exam Vital Signs: Vital Signs Temp Pulse Resp BP Pulse Ox 08/11/20 11:56 97 F 73 16 132/92 H 96 - My Orders Last 24 Hours: My Active Orders 08/11/20 12:54 DME for Discharge [COMM] Routine - Assessment/Plan Last 24 Hours: My Active Orders 08/11/20 12:54 DME for Discharge [COMM] Routine
== END 2020-08-11 13:50 | disposition home or self-care (01) ==
LOC: JD.ED 11:42
DX: M25.561 Pain in right knee (principal); I10 Essential (primary) hypertension; E03.9 Hypothyroidism, unspecified; E66.9 Obesity, unspecified; Z68.33 Body mass index [BMI] 33.0-33.9, adult; Z91.018 Allergy to other foods; Z79.899 Other long term (current) drug therapy
CPT/HCPCS: 73564; 96372; 99283; J1885

== ENCOUNTER 2020-08-24 07:55 | Day surgery (SDC) | payer BC ==
[~2020-08-24 07:55] MED LIST changes: -Lactated Ringers 1,000 ML IV SCH; +Midazolam 1 MG/ML 2 ML SDV ONE; +Propofol 200 MG/20 ML SDV ONE; +fentaNYL 100 MCG/2 ML SDV ONE
[2020-08-24] MEDS ORDERED: oxyCODONE ER 10 MG TAB.ER PO ONE (07:57)
[2020-08-24] MEDS ORDERED: Acetaminophen 325 MG Tab PO ONE (07:58)
[2020-08-24] MEDS ORDERED: Pregabalin 25 MG Cap PO ONE (07:58)
[2020-08-24] MEDS ORDERED: Ropivacaine 0.5% 5 MG/ML 30 ML SDV ONE (08:06)
[2020-08-24] MEDS ORDERED: EPINEPHrine 1 MG/ML SDV ONE (08:06)
[2020-08-24] MEDS: Lactated Ringers 1,000 ML IV SCH ×2 (08:25→14:02)
--- NOTE | 2020-08-24 08:34 | PCM.PREANE ---
Preanesthetic Assessment - Procedure Proposed Procedure: right knee - Anesthesia/Transfusion/Family Hx Anesthesia History: Prior Anesthesia Reaction Family History of Anesthesia Reaction: No Transfusion History: No Prior Transfusion(s) Intubation History: Unknown - Review of Systems General: No Symptoms Pulmonary: No Symptoms Cardiovascular: No Symptoms Gastrointestinal: No Symptoms Neurological: No Symptoms Other: Reports: Thyroid Problems, Sinus Problem (stuffy all the time), Anxiety - Physical Assessment NPO Status Date: 08/23/20 NPO Status Time: 22:00 Vital Signs: 125/88 66 95% 16 98.5 Height: 5 ft 5 in Weight: 87 kg ASA Class: 2 Mental Status: Alert & Oriented x3 Airway Class: Mallampati = 2 Dentition: Reports: Normal Dentition Thyro-Mental Finger Breadths: 3 Mouth Opening Finger Breadths: 3 ROM/Head Extension: Full Lungs: Clear to Auscultation, Normal Respiratory Effort Cardiovascular: Regular Rate, Regular Rhythm - Allergies Allergies/Adverse Reactions: Allergies Allergy/AdvReac Type Severity Reaction Status Date / Time kiwi Allergy Severe Swelling Verified 08/11/20 12:00 - Blood Blood Available: No - Acknowledgements Anesthesia Type Planned: Spinal Pt an Appropriate Candidate for the Planned Anesthesia: Yes Alternatives and Risks of Anesthesia Discussed w Pt/Guardian: Yes Pt/Guardian Understands and Agrees with Anesthesia Plan: Yes PreAnesthesia Questionnaire - Past Health History Medical/Surgical History: Denies Medical/Surgical History HEENT History: Reports: Impaired Vision, Other (See Below) Other HEENT History: Meige syndrome, bleeding gums Cardiovascular History: Reports: High Cholesterol, Hypertension Other Cardiovascular History: ITP Respiratory History: Reports: None Gastrointestinal History: Reports: None Genitourinary History: Reports: UTI, Recurrent Other Genitourinary History: breast nodule, dense breast tissue 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 (See Below) Other OB/BYN History: breast nodule, dense breast tissue, menorrhagia Musculoskeletal History: Reports: Other (See Below) Other Musculoskeletal History: Carpal tunnel syndrome Neurological History: Reports: Headaches, Chronic (not as much) Psychiatric History: Reports: Anxiety Other Psychiatric History: fatigue Endocrine/Metabolic History: Reports: Hypothyroidism, Obesity/BMI 30+ Other Endocrine/Metabolic History: abnormal TSH, hair loss Hematologic History: Reports: Other (See Below) Other Hematologic History: idiopathic thrombocytopenia Immunologic History: Reports: None Oncologic (Cancer) History: Reports: None Dermatologic History: Other Dermatologic History: hair loss, axillary adenopathy - Infectious Disease History Infectious Disease History: Reports: None - Past Surgical History Head Surgeries/Procedures: Reports: None HEENT Surgical History: Reports: Oral Surgery Cardiovascular Surgical History: Reports: None Respiratory Surgical History: Reports: None GI Surgical History: Reports: None Female Surgical History: Reports: Hysterectomy Male Surgical History: Reports: None Endocrine Surgical History: Reports: None Neurological Surgical History: Reports: None Musculoskeletal Surgical History: Reports: Carpal Tunnel, Knee Replacement, Other (See Below) Other Musculoskeletal Surgeries/Procedures:: left knee replacement, right carpal tunnel release Oncologic Surgical History: Reports: None Dermatological Surgical History: Reports: None - SUBSTANCE USE Tobacco Use Status *Q: Never Tobacco User Tobacco Use Within Last Twelve Months: No Second Hand Smoke Exposure: No Days Per Week of Alcohol Use: 1 (rare) Recreational Drug Use History: No - HOME MEDS Home Medications: Home Meds Escitalopram [Lexapro] 20 mg PO DAILY 09/25/19 [History] Levothyroxine Sodium [Levoxyl] 50 mcg PO DAILY 09/25/19 [History] lisinopriL [Lisinopril] 7.5 mg PO DAILY 09/25/19 [History] Aspirin [Aspirin EC] 325 mg PO BID #84 tab 08/21/20 [Rx] Cholecalciferol (Vitamin D3) [Vitamin D3] 5,000 unit PO DAILY 08/21/20 [History] Cyclobenzaprine [Flexeril] 10 mg PO BID PRN #20 tab 08/21/20 [Rx] oxyCODONE 5 - 10 mg PO Q4H PRN #40 tab 08/21/20 [Rx] - CURRENT (IN HOUSE) MEDS Current Meds: Current Medications Morphine Sulfate 8 mg/Epinephrine HCl 0.3 mg/Cefuroxime Sodium 750 mg/Ketorolac Tromethamine 30 mg/Sodium Chloride 7.9 ml 0 mg .XX ASDIRECTED PRN PRN Reason: Pain Stop: 08/24/20 23:00 Lactated Ringer's (Ringers, Lactated) 1,000 mls @ 125 mls/hr IV ASDIRECTED ROHIT Stop: 08/24/20 23:00 Lidocaine/Sodium Bicarbonate (Lidocaine 1%/Sod Bicarbonate In Ns 8.4% 1 Ml Syringe) 0.25 ml IDERM ONETIME PRN PRN Reason: Prior to IV Start Stop: 08/24/20 18:00 Sodium Chloride (Sodium Chloride 0.9% 10 Ml Syringe) 10 ml FLUSH ASDIRECTED PRN PRN Reason: Keep Vein Open Stop: 08/24/20 18:00 Discontinued Medications Acetaminophen (Acetaminophen 325 Mg Tab) 975 mg PO NOW ONE Stop: 08/24/20 07:59 Epinephrine HCl (Epinephrine 1 Mg/Ml Sdv) Confirm Administered Dose 1 mg .ROUTE .STK-MED ONE Stop: 08/24/20 08:07 Fentanyl (Fentanyl 100 Mcg/2 Ml Sdv) Confirm Administered Dose 100 mcg .ROUTE .STK-MED ONE Stop: 08/24/20 07:32 Midazolam HCl (Midazolam 1 Mg/Ml 2 Ml Sdv) Confirm Administered Dose 2 mg .ROUTE .STK-MED ONE Stop: 08/24/20 07:32 Oxycodone HCl (Oxycodone Er 10 Mg Tab.Er) 10 mg PO ONETIME ONE Stop: 08/24/20 07:58 Last Admin: 08/24/20 08:13 Dose: 10 mg Documented by: Pregabalin (Pregabalin 25 Mg Cap) 50 mg PO ONETIME ONE Stop: 08/24/20 07:59 Last Admin: 08/24/20 08:13 Dose: 50 mg Documented by: Propofol (Propofol 200 Mg/20 Ml Sdv) Confirm Administered Dose 400 mg .ROUTE .STK-MED ONE Stop: 08/24/20 07:32 Ropivacaine (Ropivacaine 0.5% 5 Mg/Ml 30 Ml Sdv) Confirm Administered Dose 30 ml .ROUTE .STK-MED ONE Stop: 08/24/20 08:07 Tranexamic Acid (Tranexamic Acid 1,000 Mg/10 Ml Amp) Confirm Administered Dose 1,000 mg .ROUTE .STK-MED ONE Stop: 08/24/20 08:21 Vancomycin HCl (Vancomycin 1 Gm Sdv) Confirm Administered Dose 1 gm .ROUTE .STK- MED ONE Stop: 08/24/20 08:21
[2020-08-24] MEDS ORDERED: ceFAZolin 1 GM Vial ONE (08:46)
[2020-08-24] MEDS ORDERED: Ketorolac 30 MG/ML SDV ONE (08:47)
[2020-08-24] MEDS ORDERED: Ondansetron 4 MG/2 ML SDV ONE (08:48)
[2020-08-24] MEDS: Vancomycin 1 GM SDV ONE ×2 (09:46→11:20)
[2020-08-24] MEDS: Morphine 8 MG, EPINEPHrine 0.3 MG, Cefuroxime 750 MG, Ketorolac 30 MG, Sodium Chloride ... PRN ×10 (09:47→11:14)
[2020-08-24] MEDS ORDERED: Lactated Ringers 1,000 ML ONE ×2 (10:08→11:25)
[2020-08-24] MEDS ORDERED: ePHEDrine 50 MG/ML SDV ONE (10:15)
[2020-08-24] MEDS ORDERED: HYDROmorphone 0.5 MG/0.5 ML Syringe IVPUSH PRN (10:19)
[2020-08-24] MEDS ORDERED: Ondansetron 4 MG/2 ML SDV IVPUSH PRN (10:19)
[2020-08-24] MEDS ORDERED: Sodium Chloride 0.9% 250 ML ONE (10:21)
[2020-08-24] MEDS ORDERED: Propofol 200 MG/20 ML SDV ONE (11:03)
--- NOTE | 2020-08-24 11:50 | PCM.POSTAN ---
POST ANESTHESIA ASSESSMENT - MENTAL STATUS Mental Status: Alert, Oriented - VITAL SIGNS Vital Signs: Last Vital Signs Temp 98.5 F 08/24/20 08:00 Pulse 66 08/24/20 08:00 Resp 16 08/24/20 08:00 BP 125/88 08/24/20 08:00 Pulse Ox 95 08/24/20 08:00 1143 115/56 97.7 16 99 98% - RESPIRATORY Respiratory Status: Respiratory Rate WNL, Airway Patent, O2 Saturation Stable, Supplemental Oxygen - CARDIOVASCULAR CV Status: Pulse Rate WNL, Blood Pressure Stable - GASTROINTESTINAL GI Status: No Symptoms - PAIN Pain Score: 0 - POST OP HYDRATION Hydration Status: Adequate & Stable
--- NOTE | 2020-08-24 12:09 | PCM.SN.2 ---
- Free Text/Narrative Note: Right selective femoral nerve block at the adductor canal for post-procedure pain control under US guidance requested by Dr. Ayers. Date: 08/24/20 Time Out: 1158 Start: 1200 End: 1203 Chart reviewed. Consent signed. Questions answered. Appropriate monitors applied. Time out performed. Right mid-shaft femur identified with ultrasound, scanning medially of femur, the femoral artery in the adductor canal visualized, and the femoral nerve located laterally to the artery. The skin was prepped lateral to the ultrasound probe with chlorahexadine times two. The 21ga 4 insulated block needle was inserted under direct ultrasound guidance into the adductor canal. 25mL of 0.5% ropivacaine with 1:200,000 epinephrine was injected circumferentially around the nerve with intermittent negative aspiration noted. Patient tolerated the procedure well. Sterile technique noted along with sterile gloves, mask, and sterile probe cover. See picture on progress note and vital signs on nurses notes. Block completed in PACU. Noah Hill CRNA
[2020-08-24] MEDS: fentaNYL 100 MCG/2 ML SDV IVPUSH PRN ×2 (12:20→12:27)
[2020-08-24] MEDS ORDERED: oxyCODONE 5 MG Tab PO PRN (12:22)
--- NOTE | 2020-08-24 13:26 | CR ---
Right knee: AP and crosstable lateral views of the right knee were obtained. Comparison: Prior right knee radiographic study of 08/11/20. Prosthesis is noted within the patellofemoral joint. No other acute bony abnormality is noted. Minimal soft tissue air is seen. Impression: 1. Recently placed prosthesis within the patellofemoral joint. Diagnostic code #2
--- NOTE | 2020-08-24 14:47 | PCM48HPAN ---
Post Anesthesia Note - EVALUATION WITHIN 48HRS OF ANESTHETIC Vital Signs in Normal Range: Yes Patient Participated in Evaluation: Yes Respiratory Function Stable: Yes Airway Patent: Yes Cardiovascular Function Stable: Yes Hydration Status Stable: Yes Pain Control Satisfactory: Yes Nausea and Vomiting Control Satisfactory: Yes Mental Status Recovered: Yes Vital Signs: Last Vital Signs Temp 97.7 F 08/24/20 11:43 Pulse 64 08/24/20 14:00 Resp 16 08/24/20 14:00 BP 106/72 08/24/20 14:00 Pulse Ox 98 08/24/20 14:00 - COMMENTS/OBSERVATIONS Free Text/Narrative:: Was up walking earlier and got a hot flash and nausea. Back in bed.Pain under control
[2020-08-24 15:15] VITALS: BP 122/70; PULSE 88
--- NOTE | 2020-08-24 16:48 | PCM.OPNOTE ---
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
--- NOTE | 2020-08-31 07:54 | OR ---
DATE OF OPERATION: 08/24/2020 SURGEON: Placido Ayers MD OPERATION PERFORMED: Right patellofemoral arthroplasty with [employer]. PREOPERATIVE DIAGNOSIS: Right knee patellofemoral arthritis. POSTOPERATIVE DIAGNOSIS: Right knee patellofemoral arthritis. ANESTHESIA: Local MAC with spinal. ANESTHESIA PROVIDER: Noah Hill CRNA [employer] APPLIER: Lilli Charles PA-C, and Wanda Wyman LPN. ESTIMATED BLOOD LOSS: 5 mL. COMPLICATIONS: None. CONDITION: Stable. IMPLANTS: 1. Kamaljit size 4 trochlear component. 2. [employer]co size 32 x 10 mm press-fit asymmetric patella. DESCRIPTION OF PROCEDURE: The patient was identified in the preoperative holding area. Proper site was marked and identified by the surgeon. The patient was taken back to the operative theater where, after adequate anesthesia, the patient's right lower extremity was sterilely prepped and draped in the usual sterile fashion. OR time-out was performed. The patient received 2 g of IV Ancef. Right lower extremity had a boot weir applied and then was exsanguinated, and tourniquet was insufflated to 250 mmHg. Standard anterior incision was made. Medial parapatellar arthrotomy was created making sure to keep the inner meniscal ligament intact. At this time, attention was turned to the patella. 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 Drill holes were then drilled for the cemented patellar component. At this time, two 4-0 Schanz pins were placed in the femur for the [employer] robotic array and checkpoint was placed on the femur. The [employer] plan for this patient was then undertaken and 40 points were obtained off the femur as well as mapping the cartilaginous map with the green probe for positioning of the trochlear component. Once this was completed, the [employer]co [employer] robotic arm was brought in with the bur. All the bony prominence for the trochlear component was then burred down to good subchondral bleeding bone. The 3 PEG holes were then drilled. A trial implant was then placed. It was found to be in proper position. The patient's patellofemoral joint was tracking centrally with no signs of liftoff or lateral maltracking. At this time, cement was mixed on the back table. All cut surfaces were irrigated with pulse lavage irrigation with Ancef. Once the cement was ready, the 32 x 10 mm patella was cemented into place along with a size 4 trochlear component. 1 L of pulse lavage irrigation with Ancef was irrigated through the knee along with 400 mL IrriSept irrigation. Topical tranexamic acid and vancomycin powder were applied as well as a periarticular injection, #2 barbed suture was used for closure of the medial parapatellar arthrotomy, 2-0 Vicryl and Stratafix were used for subcutaneous closure, and Prineo was used for closure of the skin. The patient had a sterile soft dressing applied and sent to the PACU in stable condition. Before closure, all pins and check points were removed. [facility] /[id number]
== END 2020-08-24 15:38 | disposition home or self-care (01) ==
LOC: JD.SDS 07:55
PROVIDERS: ATTEND Orthopaedic Surgery
DX: M17.11 Unilateral primary osteoarthritis, right knee (principal); M22.41 Chondromalacia patellae, right knee; Z91.018 Allergy to other foods
CPT/HCPCS: 27437; 27442; 73560; 97116; 97161; 97165; 97535; A9270; C1713; C1776; J0171; J0690; J0697; J1885; J2250; J2270; J2405; J2704; J2795; J3010; J3370; J7050; J7120; 01392; 64450; 76942

== ENCOUNTER 2022-08-02 06:59 | Day surgery (SDC) | payer BC ==
[~2022-08-02 06:59] MED LIST changes: +Lactated Ringers 1,000 ML IV SCH; -Midazolam 1 MG/ML 2 ML SDV ONE; -Propofol 200 MG/20 ML SDV ONE; +Sodium Chloride 0.9% 10 ML Syringe FLUSH SCH; -fentaNYL 100 MCG/2 ML SDV ONE
[2022-08-02] MEDS ORDERED: Lidocaine 1% 2 ML ONE (07:05)
[2022-08-02] MEDS ORDERED: Propofol 200 MG/20 ML SDV ONE (07:06)
[2022-08-02] MEDS ORDERED: Midazolam 1 MG/ML 2 ML SDV ONE (07:06)
[2022-08-02] MEDS ORDERED: fentaNYL 100 MCG/2 ML SDV ONE (07:06)
[2022-08-02] MEDS ORDERED: ePHEDrine 50 MG/ML SDV ONE (08:30)
[2022-08-02 09:30] VITALS: BP 117/77; PULSE 65
== END 2022-08-02 09:47 | disposition home or self-care (01) ==
LOC: JD.SDS 06:59
PROVIDERS: ATTEND Specialist
DX: Z12.11 Encounter for screening for malignant neoplasm of colon (principal); Z80.0 Family history of malignant neoplasm of digestive organs; Z83.79 Family history of other diseases of the digestive system; F41.9 Anxiety disorder, unspecified; I10 Essential (primary) hypertension; E78.00 Pure hypercholesterolemia, unspecified; E03.9 Hypothyroidism, unspecified; G47.00 Insomnia, unspecified; E11.9 Type 2 diabetes mellitus without complications; E55.9 Vitamin D deficiency, unspecified; Z79.84 Long term (current) use of oral hypoglycemic drugs; Z79.899 Other long term (current) drug therapy; Z91.018 Allergy to other foods
CPT/HCPCS: 45378; 82947; J2250; J2704; J3010; J7120; J3490